=== PATIENT | male | born 1960 | race Caucasian/White ===

== ENCOUNTER 2016-10-23 22:42 | Emergency (ER) | payer OTHER ==
[~2016-10-23] VITALS: Ht 185.4 cm; Wt 80.7 kg
[~2016-10-23 22:42] MED LIST: ASPIR 8181 MG PO; ASPIRIN EC325 MG PO; BACTRIM DS 8001 TAB PO; DILTIAZEM HCL120 M2 PO; GEMFIBROZIL600 MG PO; IBUPROFEN800 MG PO; LOVASTATIN40 MG PO; OMEPRAZOLE20 MG PO; PERCOCET 325 MG1 TA2 PO; PREDNISONE10 MG PO; PROAIR HFA0.09 MG/Ac INH; SAW PALMETTO1 CAP PO; TRAMADOL50 MG PO; ULTRAM(MONOGRAP50 MG PO; ZITHROMAX Z-PA250 M1 PO
[2016-10-23 23:14] VITALS: BP 143/86
--- NOTE | 2016-10-24 00:16 | RADIOLOGY REPORT ---
EXAMINATION: XR HAND, LEFT CLINICAL INFORMATION: Left hand injury. COMPARISON: None available. TECHNIQUE: AP, lateral, and oblique views of the left hand. FINDINGS: No fractures. The bony articulations are maintained. There are no radiopaque foreign bodies. No significant soft tissue findings. IMPRESSION: No acute osseous findings.
[2016-10-24] MEDS ORDERED: TRAMADOL HCL50 M1 PO (00:25)
--- NOTE | 2016-10-24 00:25 | ED HAND/WRIST INJURY COMPLAINT ---
History of Present Illness General Chief Complaint: Hand or Wrist Injury Stated Complaint: L HAND INJURY Source: patient Exam Limitations: no limitations Vital Signs & Intake/Output Vital Signs & Intake/Output Vital Signs Date Time Temp Pulse Resp B/P B/P Pulse O2 O2 Flow FiO2 Mean Ox Delivery Rate 10/23 2314 98.8 61 18 143/86 96 Room Air ED Intake and Output 10/24 0000 10/23 1200 Intake Total Output Total Balance Patient 178 lb Weight Weight Reported by Patient Measurement Method Allergies Coded Allergies: niacin (Intermediate, HIVES 08/26/15) Penicillins (UNKNOWN PER PT 08/31/15) atorvastatin (ANAPHYLAXIS 08/31/15) trimethoprim ("FELT LIKE I WAS DRUNK" LOSS OF EQULIBRIUM PER PT 08/31/15) Reconcile Medications Albuterol Sulfate (Proair Hfa) 0.09 MG/Actuation CARLITOS 1-2 PUFF INH 4 TIMES/DAY PRN DYSPNEA Aspirin E.c. (Ecotrin) 325 MG TAB 1 TAB PO DAILY HEART HEALTH (Reported) Diltiazem Hydrochloride (Diltiazem HCl) 120 MG C24 1 CAP PO DAILY HEART ( Reported) Gemfibrozil 600 MG TABLET 1 TAB PO BID CHOLESTEROL (Reported) Homeopathic Substance (Saw [place]) 1 CAP CAP 1 CAP PO DAILY SUPPLEMENT ( Reported) Ibuprofen 800 MG TAB 1 TAB PO 4 TIMES/DAY PRN PAIN Lovastatin 40 MG TABLET 40 MG PO DAILY HIGH CHOLESTEROL (Reported) Sulfamethoxazole/Trimethopri (Bactrim Ds 800 MG-160 MG) 1 TAB TAB 1 TAB PO BID SKIN INFECTION Tramadol HCl 50 MG TABLET 1-2 TAB PO BIDP PRN PAIN Tramadol HCl (Ultram) 50 MG TAB 1-2 TAB PO 4 TIMES/DAY PRN PAIN [id number].... TEN TABS. Triage Note: PT TO TRIAGE WITH C/O LEFT HAND PAIN 8/10 S/P HIT IT ON LADDER AT 4PM. PT TOOK TRAMADOL AT 10PM WITH PAIN RELIEF. NO OTHER COMPLAINTS. REQUESTING XRAY. Triage Nurses Notes Reviewed? yes Occurred: just prior to arrival Duration: hour(s):, constant Timing: single episode today Severity: mild, moderate Pain/Injury Location: Left: Hand. No Modifying Factors: none HPI: 56-year-old male comes into emergency room for further evaluation of left hand pain. Patient reports that he got it slammed with a ladder by accident. Sharp from pain between his first and second digit. Patient reports that initially was okay but started to throb a couple hours later. Patient took a tramadol which gave some minimal relief. Denies any numbness or tingling. Denies any other associated symptoms or trauma. Past History Travel History Traveled to [place] past 21 day No Medical History Any Pertinent Medical History? 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 Hx Contributory? No Review of Systems Review of Systems Constitutional: Reports: no symptoms. EENTM: Reports: no symptoms. Respiratory: Reports: no symptoms. Cardiovascular: Reports: no symptoms. GI: Reports: no symptoms. Genitourinary: Reports: no symptoms. Musculoskeletal: Reports: see HPI. Skin: Reports: no symptoms. Neurological/Psychological: Reports: no symptoms. Hematologic/Endocrine: Reports: no symptoms. Immunologic/Allergic: Reports: no symptoms. All Other Systems: Reviewed and Negative Physical Exam Physical Exam General Appearance: well developed/nourished, mild distress Head: atraumatic Eyes: Bilateral: normal appearance. Ears, Nose, Throat: normal ENT inspection, hearing grossly normal Neck: normal inspection Cardiovascular/Respiratory: no respiratory distress Back: normal inspection Hand Left: ecchymosis, limited range of motion, swelling, tender Hand Right: normal inspection, normal range of motion Neurologic/Tendon: normal sensation, normal motor functions, normal tendon functions, responds to pain, no evidence tendon injury, no pulse deficit Skin: intact, normal color, warm/dry Lymphatic: no anterior cervical michelle Diagram Hands Back 1) TENDERNESS WITH PALPATION Progress Differential Diagnosis: contusion, dislocation, felon, fracture, gout, paronychia, septic arthritis, sprain Plan of Care: Orders Procedure Date/time Status Durable Medical Equipment 10/24 0026 Active Diagnostic Imaging: Viewed by Me: Radiology Read. Discussed w/RAD: Radiology Read. Radiology Impression: SERVICE DATE: 10/23/16 EXAM TYPE: RAD - XRY-HAND, LEFT EXAMINATION: XR HAND, LEFT CLINICAL INFORMATION: Left hand injury. COMPARISON: None available. TECHNIQUE: AP, lateral, and oblique views of the left hand. FINDINGS: No fractures. The bony articulations are maintained. There are no radiopaque foreign bodies. No significant soft tissue findings. IMPRESSION: Departure Departure Disposition: HOME OR SELF CARE Condition: Stable Clinical Impression Primary Impression: Contusion of left hand Referrals: MATTY MADRID,HEIDI [place] (PCP/Family) Additional Instructions: Take tramadol as prescribed. Ice. Rest. Follow-up with orthopedic if not better in 7-10 days. Please go over all results of today's visit with your primary care doctor. Contact your primary care doctor to let them know you were here in the emergency room. There may be nonspecific findings which may not be related to your visit today here in the emergency room but may require further evaluation and chronic monitoring by your primary care doctor. If you had a laceration today the chance of foreign body always remains. You should follow-up with your primary care doctor for recheck in 3-5 days for a wound check. If you had an x-ray done there is a chance that a fracture could have been missed on initial read and you should follow-up with your primary care doctor for repeat x-rays if symptoms persist. If your blood pressure was elevated here in the emergency room please have rechecked by her primary care doctor within the next 48 hours by your primary care doctor. If you were prescribed a narcotic here in the emergency room or any type of controlled substances you're not allowed to drive while taking this medication or operate any type of heavy machinery. Narcotics can make you feel lightheaded dizziness nausea and can cause constipation. 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 Thank you for choosing [facility] emergency room. Please return to the emergency room immediately if you have any other concerns worsening of symptoms. Departure Forms: Customer Survey General Discharge Information Prescriptions: Current Visit Scripts Tramadol HCl 1-2 TAB PO BIDP PRN PAIN #10 TAB Comments Patient clinically looks well. Nontoxic-appearing. No evidence of acute fracture. Ice. Rest. Motrin. Return if any other concerns. Procedures Splinting Location: left wrist/hand Pre-Made Type: velcro Splint: thumb spica, wrist Splint Applied By: splint applied by me Pre-Proc Neuro Vasc Exam: normal Post-Proc Neuro Vasc Exam: normal
== END 2016-10-24 00:39 ==
LOC: ERH 22:42
DX: S60.222A Contusion of left hand, initial encounter (principal); W23.0XXA Caught, crushed, jammed, or pinched between moving objects, initial encounter; Y92.9 Unspecified place or not applicable; Y93.9 Activity, unspecified
CPT/HCPCS: 73130-LT

== ENCOUNTER 2017-07-27 10:04 | Emergency (ER) | payer OTHER ==
[~2017-07-27] VITALS: Ht 185.4 cm; Wt 81.6 kg
[~2017-07-27 10:04] MED LIST changes: +ASPIRIN EC325 M2 PO; +CARTIA XT120 M1 PO; +CIPRO250 M1 PO; +DAILY MULTIPLE1 EACH PO; +GEMFIBROZIL600 M1 PO; +LOVASTATIN40 M1 PO; +METAMUCIL660 GM PO; +MIRALAX17 G1 PO; +NEXIUM40 M1 PO; +NIACIN500 M4 PO; +PROMETHAZINE HC25 M3 PO; +PYRIDIUM200 M1 PO; +TRAMADOL HCL50 M1 PO; +ZANTAC300 MG PO; +ZOFRAN ODT4 M1 SL
--- NOTE | 2017-07-27 11:43 | ED UPPER/LOWER EXTREMITY COMPL ---
History of Present Illness General Chief Complaint: Shoulder Injury Stated Complaint: R ARM PAIN SP FALL? Source: patient Exam Limitations: no limitations Vital Signs & Intake/Output Vital Signs & Intake/Output Vital Signs Date Time Temp Pulse Resp B/P B/P Pulse O2 O2 Flow FiO2 Mean Ox Delivery Rate 07/27 1225 98.3 52 16 130/82 96 Room Air 07/27 1015 98.0 74 16 138/88 99 Room Air Allergies Coded Allergies: niacin (Intermediate, HIVES FOR REG RELEASE 02/24/17) Penicillins (UNKNOWN PER PT 08/31/15) atorvastatin (ANAPHYLAXIS 08/31/15) trimethoprim ("FELT LIKE I WAS DRUNK" LOSS OF EQULIBRIUM PER PT 08/31/15) Reconcile Medications Aspirin (Ecotrin*) 325 MG TABLET.DR 1 TAB PO DAILY HEART/BLOOD (Reported) Ciprofloxacin HCl (Cipro) 250 MG TABLET 1 TAB PO BID URINE INFECTION Diltiazem HCl (Cartia Xt) 120 MG CAP.ER.24H 1 CAP PO DAILY HEART/BP (Reported ) Esomeprazole (Nexium) 40 MG CAPSULE.DR 1 CAP PO DAILY AC GI (Reported) Gemfibrozil 600 MG TABLET 1 TAB PO BID CHOLESTEROL (Reported) Lovastatin 40 MG TABLET 1 TAB PO DAILY CHOLESTEROL (Reported) with food Multivitamin (Daily Multiple Vitamin) 1 EACH TABLET 1 TAB PO DAILY SUPPLEMENT (Reported) Niacin 500 MG CAPSULE.ER 1 TAB PO DAILY CHOLESTEROL (Reported) Ondansetron (Zofran Odt) (Unknown Strength) TAB.RAPDIS (Unknown Dose) SL AD PRN N/V (Reported) Phenazopyridine HCl (Pyridium) 200 MG TABLET 1 TAB PO TID DYSUIRA Polyethylene Glycol 3350 (Miralax) 17 GRAM POWD.PACK 1 PAC PO BID GI ( Reported) dissolve in water Promethazine HCl 25 MG TABLET 1 TAB PO Q6P PRN NAUSEA/VOMITING Psyllium Husk (Metamucil) (Unknown Strength) POWDER (Unknown Dose) PO BID GI (Reported) Ranitidine HCl (Zantac) 300 MG TABLET 1 TAB PO QPM stomach acid Triage Note: PT TO ED FOR ARM PAIN S/P FALL FROM A LADDER 10 DAYS AGO, NORMAL ROM, C/O ENTIRE ARM PAIN, DECLINES MEDS. MOVING ARM AND HAND FREELY IN TRIAGE. Triage Nurses Notes Reviewed? yes Onset: Gradual Duration: getting worse Timing: recent history Severity: moderate Severity Numbers: 5 Pain/Injury Location: Right: Elbow, Forearm. 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 Patient states the following day he began developing right forearm and elbow pain for FOLLOWING 24 hours however throughout the week his symptoms were improving of pain however patient states that he was "babying it" this whole week work yesterday he was vacuuming and using his right upper extremity more where he had worsening symptoms that evening and presenting today. Patient denies any new mechanism injury Patient denies any headache extremity paresthesia Patient states that right elbow movements and wrist movements make worse Denies any extremity swelling (Anam Garcia) Past History Travel History Traveled to [place] past 21 day No Medical History Any Pertinent Medical History? 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 Hx Contributory? No (Anam Garcia) Review of Systems Review of Systems Constitutional: Reports: no symptoms. EENTM: Reports: no symptoms. Respiratory: Reports: no symptoms. Cardiovascular: Reports: no symptoms. Gastrointestinal/Abdominal: Reports: no symptoms. Genitourinary: Reports: no symptoms. Musculoskeletal: Reports: see HPI, joint pain, muscle pain. Skin: Reports: no symptoms. Neurological/Psychological: Reports: no symptoms. Hematologic/Endocrine: Reports: no symptoms. Immunological: Reports: no symptoms. All Other Systems: Reviewed and Negative (Talia CUNNINGHAM,Anam) Physical Exam Physical Exam General Appearance: no apparent distress, alert, comfortable Head: evidence of injury Eyes: Bilateral: normal appearance. Ears, Nose, Throat: hearing grossly normal Neck: normal inspection, full range of motion Cardiovascular/Respiratory: regular rate/rhythm, no respiratory distress Peripheral Pulses: 2+ radial (R) Neurologic/Tendon: normal sensation, normal motor functions, normal tendon functions, responds to pain, no evidence tendon injury, no pulse deficit Skin: intact, normal color Comments: FOREHEAD- WELL HEALING 1 CM RIGHT LATERAL FOREHEAD LACERATION Right shoulder normal inspection nontender full active range of motion Right elbow normal inspection for ACTIVE range of motion with mild pain with flexion and extension generalized elbow point tenderness noted Right forearm normal inspection generalized point tenderness noted 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 [place] wrap was placed to right elbow and forearm pre-and post-neurovascular was intact Diagnostic Imaging: Viewed by Me: Radiology Read. Radiology Impression: no acute abnormality Comments: PATIENT: SELENA KUMARI PRESENT AGE: 57 PATIENT ACCOUNT NO: [id number] : 58 LOCATION: [facility] ORDERING PHYSICIAN: Anam CUNNINGHAM SERVICE DATE: 07/27/17 EXAM TYPE: RAD - XRY-ELBOW 3 OR MORE VIEWS, R; XRY-FOREARM, RIGHT EXAMINATION: XR FOREARM, RIGHT XR ELBOW, RIGHT CLINICAL INFORMATION: 57-year-old male presented with right forearm and elbow pain. COMPARISON: None TECHNIQUE: AP and lateral views of the right forearm were obtained. 4 views, 7 images of the right elbow were obtained. FINDINGS: Right Forearm: The bony alignment is intact. The cortices are intact. No focal osseous abnormality is present. The soft tissues are unremarkable. Right Elbow: Mild osteoarthrosis is noted at the right elbow. Large well-corticated bony spur is noted along the posterior superior cortex of the olecranon process, consistent with triceps tendon enthesopathy. No joint effusion present. Soft tissues are unremarkable. IMPRESSION: 1. No radiographic evidence of any acute fracture and/or dislocation or joint effusion present. 2. Triceps tendon enthesopathy. 3. Mild osteoarthrosis of the right elbow. DICTATED BY: Tony Smith MD DATE/TIME DICTATED:07/27/171217 STAFF GENETIC COUNSELOR:HAILEE DATE/TIME TRANSCRIBED:07/27/171217 (Anam Garcia) Departure Departure Disposition: HOME OR SELF CARE Condition: Stable Clinical Impression Primary Impression: Right arm pain Referrals: Ricardo MADRID,Gerard [place] (PCP/Family) Varun Chairez MD Additional Instructions: As discussed begin [id number] Tylenol or previously prescribed tramadol for your symptoms, begin using the [place] wrap for support and swelling begin icing 20 minutes every 2 hours if no better in 5 days follow up with orthopedic Dr. Chairez if symptoms worsen return to emergency room Departure Forms: Customer Survey General Discharge Information (Anam Garcia) PA/DISTRIBUTION LEAD Co-Sign Statement Statement: ED Attending supervision documentation- [] I saw and evaluated the patient. I have also reviewed all the pertinent lab results and diagnostic results. I agree with the findings and the plan of care as documented in the PA's/DISTRIBUTION LEAD's documentation. [x] I have reviewed the ED Record and agree with the PA's/DISTRIBUTION LEAD's documentation. [] Additions or exceptions (if any) to the PAs/DISTRIBUTION LEAD's note and plan are summarized below: [] (Cabrera Fraser DO
[2017-07-27 12:25] VITALS: BP 130/82
--- NOTE | 2017-07-27 12:42 | RADIOLOGY REPORT ---
EXAMINATION: XR FOREARM, RIGHT XR ELBOW, RIGHT CLINICAL INFORMATION: 57-year-old male presented with right forearm and elbow pain. COMPARISON: None TECHNIQUE: AP and lateral views of the right forearm were obtained. 4 views, 7 images of the right elbow were obtained. FINDINGS: Right Forearm: The bony alignment is intact. The cortices are intact. No focal osseous abnormality is present. The soft tissues are unremarkable. Right Elbow: Mild osteoarthrosis is noted at the right elbow. Large well-corticated bony spur is noted along the posterior superior cortex of the olecranon process, consistent with triceps tendon enthesopathy. No joint effusion present. Soft tissues are unremarkable. IMPRESSION: 1. No radiographic evidence of any acute fracture and/or dislocation or joint effusion present. 2. Triceps tendon enthesopathy. 3. Mild osteoarthrosis of the right elbow.
== END 2017-07-27 13:12 ==
LOC: ERH 10:04
DX: M79.601 Pain in right arm (principal)
CPT/HCPCS: 73080-RT; 73090-RT